=== PATIENT | male | born 1985 | race Caucasian/White ===

== ENCOUNTER 2017-12-22 09:07 | Emergency (ER) | payer BC ==
[2017-12-22 09:24] VITALS: BP 132/84
--- NOTE | 2017-12-22 09:44 | UC ---
Dental HPI - HPI Summary HPI Summary: 32-year-old male with history of multiple dental issues in the past presents with gradually worsening gradual onset right-sided dental pain located in the right posterior inferior molars, worse with food and drink, no relieving factors. Denies any fevers or dysphagia. Similar to many prior episodes in the past. Patient already has a dentist appointment scheduled in approximately one week. - History of Current Complaint Chief Complaint: UCDentalProblem Stated Complaint: DENTAL COMPLAINT Time Seen by Provider: 12/22/17 09:32 Hx Obtained From: Patient Onset/Duration: Gradual Onset Severity: Moderate Pain Intensity: 5 Aggravating Factor(s): Heat, Cold, Chewing Alleviating Factor(s): Nothing Related History: Previous Dental Care on Same Tooth - Allergies/Home Medications Allergies/Adverse Reactions: Allergies Allergy/AdvReac Type Severity Reaction Status Date / Time No Known Allergies Allergy Verified 12/22/17 09:19 PMH/Surg Hx/FS Hx/Imm Hx - Additional Past Medical History Additional PMH: Prior dental procedures Previously Healthy: Yes - Surgical History Surgical History: None - Family History Known Family History: Positive: None - Social History Alcohol Use: None Substance Use Type: None Smoking Status (MU): Former Smoker When Did the Patient Quit Smoking/Using Tobacco: 10 YRS AGO - Immunization History Most Recent Tetanus Shot: UTD Review of Systems Constitutional: Negative ENT: Dental Pain All Other Systems Reviewed And Are Negative: Yes Physical Exam - Summary Physical Exam Summary: Gen: alert, in no acute distress HEENT: EOMI, normoecphalic, atruamatic, multiple dental caries right lower molars, no evidence of drainable abscess Neck: supple, no masses CV: Normal s1 s2, no murmurs Resp: normal breath sounds b/l GI: no tenderness, no masses Musculoskeletal: normal ROM all 4 extremities Skin: no rash Lymph: no lymphadenopathy Psych: appropriate affect, oriented Triage Information Reviewed: Yes Vital Signs: Initial Vital Signs Temp 36.6 C 12/22/17 09:19 Pulse 60 12/22/17 09:19 Resp 16 12/22/17 09:19 BP 132/84 12/22/17 09:19 Pulse Ox 100 12/22/17 09:19 Dental Complaint Course/Dx - Course Course Of Treatment: I instructed patient to use dental paste for tooth covering for painful exposed areas and to begin antibiotic regimen. No drainable abscesses visualized today, already has a dental appointment scheduled , agrees to and understands discharge structures. No change in by mouth intake , in no acute distress. Vitals within normal limits. - Differential Dx/Diagnosis Provider Diagnoses: Dental caries Discharge - Sign-Out/Discharge Documenting (check all that apply): Patient Departure All imaging exams completed and their final reports reviewed: No Studies - Discharge Plan Condition: Stable Disposition: HOME Prescriptions: Clindamycin Cap(NF) [Clindamycin Cap 300 mg Cap(NF)] 300 mg PO TID #21 cap Patient Education Materials: Toothache (ED) Referrals: No Primary Care Phys,NOPCP [Primary Care Provider] - Additional Instructions: PLEASE GO TO SCHEDULED DENTAL APPOINTMENT PLEASE COMPLETE COURSE OF MEDICATION PLEASE PURCHASE EITHER DENTEK OR SIMILAR PRODUCT AT A PHARMACY FOR TEMPORARY TOOTH COVERING - Billing Disposition and Condition Condition: STABLE Disposition: Home
== END 2017-12-22 09:50 | disposition home or self-care (01) ==
LOC: UCCORT 09:07
DX: K04.7 Periapical abscess without sinus (principal); Z87.891 Personal history of nicotine dependence
CPT/HCPCS: 99212; G0463